=== PATIENT | female | born 1995 | race Caucasian/White ===

== ENCOUNTER 2018-11-04 01:14 | Emergency (ER) | payer SELFPAY ==
[~2018-11-04] VITALS: Ht 147.3 cm; Wt 64.2 kg
[2018-11-04] MEDS ORDERED: SODIUM CHLORIDE 0.9% 1,000 ML IV ONE (02:04)
[2018-11-04 02:29] LABS: BASOPHILS % 0.5 % (0.0-2.0); EOSINOPHILS % 2.7 % (0.0-5.0); HEMOGLOBIN. 12.7 g/dL (12.0-16.0); LYMPHOCYTES % 41.1 % (20.0-50.0); MEAN CORPUSCULAR HEMOGLOBIN 28.3 pg (28.0-32.0); MEAN CORPUSCULAR VOLUME 84.7 fL (81.0-99.0); MEAN PLATELET VOLUME 8.2 fl (7.4-10.4); MONOCYTES % 7.4 % (2.0-8.0); NEUTROPHILS % 48.3 % (40.0-76.0); PLATELET 402 x1000/uL (130-400); RED BLOOD CELL COUNT 4.49 mill/uL (4.2-5.4); RED CELL DISTRIBUTION WIDTH 13.3 % (11.6-14.6)
[2018-11-04 02:34] LABS: CHLORIDE 107 mEq/L (98-107)
[2018-11-04 03:31] LABS: *AMPHETAMINES SCREEN URINE NEGATIVE (NEGATIVE); *BARBITURATES SCREEN URINE NEGATIVE (NEGATIVE); *BENZODIAZEPINES SCREEN URINE NEGATIVE (NEGATIVE); *COCAINE SCREEN URINE NEGATIVE (NEGATIVE); METHADONE URINE SCREEN NEGATIVE (NEGATIVE); OPIATES URINE SCREEN NEGATIVE (NEGATIVE)
[2018-11-04 03:32] LABS: CANNABINOID URINE SCREEN NEGATIVE (NEGATIVE); PHENCYCLIDINE URINE SCREEN NEGATIVE (NEGATIVE)
[2018-11-04 05:40] VITALS: BP 109/41
== END 2018-11-04 05:46 | disposition home or self-care (01) ==
LOC: ER 03:18
DX: F41.0 Panic disorder [episodic paroxysmal anxiety] (principal); Z98.890 Other specified postprocedural states; R42 Dizziness and giddiness; H53.8 Other visual disturbances
CPT/HCPCS: 36415; 70450; 80053; 80305; 81025; 82962; 85025; 93005; 99284; J7030; Z7610

== ENCOUNTER 2020-07-06 05:15 | Emergency (ER) | payer MEDICAID ==
[~2020-07-06] VITALS: Ht 147.3 cm; Wt 58.0 kg
[2020-07-06 06:35] LABS: BASOPHILS % 0.2 % (0.0-2.0); EOSINOPHILS % 0.7 % (0.0-5.0); HEMATOCRIT. 39.6 % (36.0-48.0); HEMOGLOBIN. 12.9 g/dL (12.0-16.0); LYMPHOCYTES % 15.5 % (20.0-50.0); MEAN CORPUSCULAR HEMOGLOBIN 26.5 pg (28.0-32.0); MEAN PLATELET VOLUME 7.9 fl (7.4-10.4); MONOCYTES % 7.3 % (2.0-8.0); NEUTROPHILS % 76.3 % (40.0-76.0); PLATELET 317 x1000/uL (130-400); RED BLOOD CELL COUNT 4.88 mill/uL (4.2-5.4); RED CELL DISTRIBUTION WIDTH 18.1 % (11.6-14.6)
[2020-07-06 06:42] LABS: CHLORIDE 107 mEq/L (98-107)
[2020-07-06 06:48] LABS: CLARITY URINE CLOUDY (CLEAR); COLOR URINE YELLOW (YELLOW); KETONES URINE NEGATIVE (NEGATIVE); LEUKOCYTE ESTERASE URINE 2+ (NEGATIVE); NITRITE URINE POSITIVE (NEGATIVE); OCCULT BLOOD URINE 3+ (NEGATIVE); PH URINE 5.5 (4.5-8.0); PROTEIN URINE 3+ (NEGATIVE); SPECIFIC GRAVITY URINE 1.022 (1.005-1.030); UROBILINOGEN URINE 0.2 E.U./dL (0.2-1.0)
[2020-07-06 06:52] LABS: HCG SCREEN NEGATIVE
[2020-07-06 06:57] LABS: B-HCG QUANTITATIVE < 1 mIU/mL (<3)
[2020-07-06] MEDS ORDERED: NITR100C MT (07:24)
[2020-07-06 08:00] VITALS: BP 108/50
== END 2020-07-06 08:02 | disposition home or self-care (01) ==
LOC: ER 05:15
DX: N39.0 Urinary tract infection, site not specified (principal); R10.2 Pelvic and perineal pain
CPT/HCPCS: 36415; 76770; 76830; 76856; 80053; 81003; 81025; 84702; 84703; 85025; 86850; 86900; 87077; 87186; 93005; 99285